=== PATIENT | male | born 1975 | race Caucasian/White ===

== ENCOUNTER 2024-05-26 10:46 | Emergency (ER) | payer SELFPAY ==
[2024-05-26] MEDS: Lidocaine 1% with EPINEPHrine 1:100,000 20 ML MDV INJECT ONE (11:18)
== END 2024-05-26 11:45 | disposition home or self-care (01) ==
LOC: LB.ED 10:46
DX: S60.453A Superficial foreign body of left middle finger, initial encounter (principal); Z88.5 Allergy status to narcotic agent; W45.8XXA Other foreign body or object entering through skin, initial encounter
CPT/HCPCS: 10120; 99283; 99283-25